=== PATIENT | female | born 1985 | race Caucasian/White ===

== ENCOUNTER 2017-05-05 18:01 | Emergency (ER) | payer BC ==
[2017-05-05] MEDS ORDERED: Tetracaine 0.5% OPTH.SOL 15ML* BTL ONE (18:40)
[2017-05-05] MEDS ORDERED: Fluorescein Sodium TOPICAL* 1 MG TEST OPHTHALMIC ONE (19:20)
[2017-05-05] MEDS ORDERED: Fluorescein Sodium TOPICAL* 1 MG TEST ONE (19:21)
--- NOTE | 2017-05-05 19:37 | ED ---
Throat Pain/Nasal Congestion - HPI Summary HPI Summary: 31 female presents to ED with complaints of right eye pain, tearing and possible foreign object. Patient states she was doing work at home with a saw and had saw dust get into her right eye. States she washed it out at home and was unable to visualize any foreign body however it is painful and feels like there is a FB in her right eye. Admits to tearing, no other discharge. Is light sensitive. No vision changes other than pain and blurred due to tears. Does not wear contacts or glasses. No other complaints. No PMHx. No medications. - History of Current Complaint Chief Complaint: EDEyeProblem Time Seen by Provider: 05/05/17 18:19 Hx Obtained From: Patient Onset/Duration: Sudden Onset, Lasting Hours, Still Present Severity: Mild Associated Signs And Symptoms: Positive: FB Sensation - right eye Cough: None PMH/Surg Hx/FS Hx/Imm Hx Endocrine/Hematology History: Denies: Hx Diabetes Cardiovascular History: Denies: Hx Hypertension Respiratory History: Denies: Hx Asthma Sensory History: Denies: Hx Contacts or Glasses Opthamlomology History: Denies: Hx Contacts or Glasses - Surgical History Surgery Procedure, Year, and Place: n/a - Immunization History Immunizations Up to Date: Yes Infectious Disease History: No Infectious Disease History: Denies: Traveled Outside the [place] in Last 30 Days - Family History Known Family History: Positive: None - Social History Alcohol Use: None Substance Use Type: Reports: None Smoking Status (MU): Never Smoked Tobacco Review of Systems Constitutional: Negative Positive: Photophobia, Blurred Vision, Other - Fb sensation Cardiovascular: Negative Respiratory: Negative Neurological: Negative All Other Systems Reviewed And Are Negative: Yes Physical Exam Triage Information Reviewed: Yes Vital Signs On Initial Exam: Initial Vitals Temp Pulse Resp BP Pulse Ox 98.7 F 74 16 127/65 100 05/05/17 18:12 05/05/17 18:12 05/05/17 18:12 05/05/17 18:12 05/05/17 18:12 Vital Signs Reviewed: Yes Appearance: Positive: Well-Appearing, Well-Nourished, Pain Distress - moderate right eye Skin: Positive: Warm, Skin Color Reflects Adequate Perfusion, Dry. Negative: Cold, Cyanosis @, Pale, Erythema @ Head/Face: Positive: Normal Head/Face Inspection Eyes: Positive: EOMI, BRIGID, Conjunctiva Inflammed - right, irritated, Other: - no Fb present on normal exam, fluroscein stain preformed and showed corneal abrasion of right eye, without FB. no FB under eyelid noted. left eye exam normal ENT: Positive: Normal ENT inspection, Hearing grossly normal, Pharynx normal Neck: Positive: Supple, Nontender Respiratory/Lung Sounds: Positive: Clear to Auscultation, Breath Sounds Present. Negative: Rales, Rhonchi, Wheezes Cardiovascular: Positive: Normal, RRR, Pulses are Symmetrical in both Upper and Lower Extremities. Negative: Murmur, Rub Neurological: Positive: Normal, Sensory/Motor Intact, Alert, Oriented to Person Place, Time - Saira Coma Scale Coma Scale Total: 15 Procedures - Eye Procedure Alcaine Drops Administered: Yes - right eye, fluro stain completed, corneal abrasion Eye Irrigated w/ Saline (ccs): 200 Diagnostics - Vital Signs Vital Signs Temp Pulse Resp BP Pulse Ox 05/05/17 18:12 98.7 F 74 16 127/65 100 - Laboratory Lab Statement: Any lab studies that have been ordered have been reviewed, and results considered in the medical decision making process. EENT Course/Dx - Course Course Of Treatment: appears to have sustained a corneal abrasion of right eye due to debris and rubbing at eye. eye was thouroughly flushed out. fluroscein stain preformed and showed corneal abrasion. will treat prophylactically with antibiotic drops. no concern for other etiology at this time. follow up pcp/ optho. aware of worsening signs and symptoms to watch out for. cool compresses, ibuprofen. - Differential Diagnoses Differential Diagnoses: Conjunctivitis, Corneal Abrasion, Foreign Body - Diagnoses Provider Diagnoses: Right corneal abrasion Discharge - Discharge Plan Condition: Stable Disposition: HOME Prescriptions: Polymyx/Trimethoprim OPTH* [Polytrim OPHTH*] 1 drop RIGHT EYE Q3H #1 btl Patient Education Materials: Corneal Abrasion (ED) Referrals: Herrera Go MD [Medical Doctor] - Obinna Perez MD [Primary Care Provider] - Additional Instructions: Use prescribed drops as directed to prevent infection. Use eye wash as needed to help soothe pain. Cool compresses and ibuprofen to help with pain and swelling. Avoid touching and rubbing eye. Wear sunglasses and stay in dark rooms when able. Follow up with PCP. Any new or worsening symptoms please seek medical attention promptly, as discussed.
[2017-05-05 19:45] VITALS: BP 108/62
== END 2017-05-05 19:48 | disposition home or self-care (01) ==
LOC: ED 18:01
DX: S05.01XA Injury of conjunctiva and corneal abrasion without foreign body, right eye, initial encounter (principal); H57.11 Ocular pain, right eye; X58.XXXA Exposure to other specified factors, initial encounter; Y93.9 Activity, unspecified; Y92.9 Unspecified place or not applicable; Y99.9 Unspecified external cause status
CPT/HCPCS: 99282; A9270-GY